=== PATIENT | female | born 1985 | race Caucasian/White ===

== ENCOUNTER → 2021-05-31 | Outpatient (CLI) | payer OTHER ==
--- NOTE | 2021-05-31 15:18 | KCIC ---
STUDY: MRI of the right knee without contrast INDICATION: Chronic right knee pain and swelling. COMPARISON: None. TECHNIQUE: Multiplanar MR imaging of the right knee performed without the use of intravenous or intra -articular contrast. FINDINGS: Menisci: Tear of the lateral meniscus posterior horn with an incomplete radial component as well as a horizontal component along its undersurface, images 11 and 12 series 8. It is difficult to discern i f there is a vertical longitudinal tear as well given the origin of the meniscofemoral ligament in th is region. No discrete tear of the medial meniscus with minimal signal heterogeneity along the aurist ior body segment and posterior horn. Cruciate ligaments: Intact. Collateral ligaments: Intact. Tendons: No tendon tear or significant tendinosis. 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 Less pronounced chondrosis at the upper aspect of the medial tro chlea and along the patellar median ridge. Lateral compartment: Chondrosis which is partly high-grade/full-thickness involving both the femoral condyle and tibial plateau adjacent to the posterior horn meniscal tear. Medial compartment: No high-grade or full-thickness defect. Bones: Small tricompartmental osteophytes. Miscellaneous: Moderate sized Larios's cyst. Small amount of knee joint fluid. Reactive appearing subc entimeter popliteal fossa lymph node. IMPRESSION: 1. Multidirectional tear of the lateral meniscus posterior horn centered in the region of the menisc ofemoral ligament attachment, as above. No discrete tear of the medial meniscus. The cruciate and col lateral ligaments are intact. 2. 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 Associated subchondral cystic change mainly at t he lower aspect of the medial trochlea. Small tricompartmental osteophytes. 3. Moderate-sized Larios's cyst. Small amount of knee joint fluid. Electronically signed by: MARYLIN MC MD (05/31/2021 3:16 PM) [id number]
== END ==
LOC: KCIC MRI 10:49
PROVIDERS: ATTEND Psychiatry & Neurology Neurology
DX: S83.281A Other tear of lateral meniscus, current injury, right knee, initial encounter (principal); M71.21 Synovial cyst of popliteal space [Baker], right knee; M25.461 Effusion, right knee; M25.861 Other specified joint disorders, right knee; X58.XXXA Exposure to other specified factors, initial encounter; Y93.89 Activity, other specified; Y92.89 Other specified places as the place of occurrence of the external cause; Y99.8 Other external cause status
CPT/HCPCS: 73721